=== PATIENT | male | born 1960 | race Caucasian/White ===

== ENCOUNTER 2016-10-14 12:13 | Emergency (ER) | payer OTHER ==
--- NOTE | ~2016-10-14 | CT71 ---
[facility] A Service of [facility] RADIOLOGY TEXT RESULTS PATIENT: VITALIY CONCEPCION LOCATION: [facility] : [birth year] UNIT #: [id number] AGE: [address]: Uriel Lopez MD SEX: M ORDER DR: [id number] [place] [id number] [facility]. [place], [place] [address] [id number] MR#: [id number] Acc #: [id number] NAME: VITALIY CONCEPCION : 1960 SEX: M STUDY DATE/TIME: 10/14/2016 12:53 UNIT: [facility] ROOM: STUDY DESCRIPTION: CT Head Wo Contrast Attending Physician: Uriel Lopez M.D. Ordering Physician: Uriel Lopez M.D. Primary Care Physician: William Doyle M.D. MEDICAL IMAGING REPORT This report is preliminary unless electronic signature is present EXAM CT of the head without contrast. INDICATION Neck pain for 2 weeks. Patient reports weakness in the right hand starting today. TECHNIQUE Axial CT images were obtained from the vertex of the skull through the skull base. No intravenous contrast was administered. This CT exam was performed with one or more of the following radiation dose reduction techniques: automatic exposure control, adjustment of mA and/or kV according to patient size, and iterative reconstruction. FINDINGS No acute intracranial hemorrhage is identified. Patient does have some cerebral atrophy which may be mildly advanced for the age of 56. I do think this has progressed slightly when compared to the exam from October 2011. There is no midline shift or mass effect and no focal areas of decreased attenuation are seen. Visualized paranasal sinuses and mastoid air cells appear clear. There is atherosclerotic involvement of the cavernous carotid arteries. There are no focal soft tissue abnormalities. IMPRESSION No acute intracranial process identified. Specifically, there is no evidence of acute hemorrhage, mass lesion, or acute infarct. [facility] A Service of [facility] RADIOLOGY TEXT RESULTS PATIENT: VITALIY CONCEPCION LOCATION: [facility] : [birth year] UNIT #: [id number] AGE: [address]: Uriel Lopez MD SEX: M ORDER DR: Dictated by... Lindsey Light M.D. THIS IS AN ELECTRONICALLY VERIFIED REPORT Lindsey Light M.D. at 10/14/2016 4:39 PM AFF/tmw TD: 10/14/2016 16:26 JOB #: [id number] MEDICAL IMAGING REPORT COPY
[~2016-10-14 12:13] MED LIST: ASPIRIN EC81 M1 PO; AZOR 10/20 MG T1 TAB PO; CLOPIDOGREL75 MG PO; LIPITOR20 MG PO; METOPROLOL TAR25 MG PO; PREVACID PO
== END 2016-10-14 13:49 | disposition home or self-care (01) ==
LOC: CED 12:13
DX: M54.12 Radiculopathy, cervical region (principal); F17.200 Nicotine dependence, unspecified, uncomplicated
CPT/HCPCS: 70450; 99284

== ENCOUNTER → 2016-11-04 | Outpatient (CLI) | payer OTHER ==
--- NOTE | ~2016-11-04 | MR32 ---
[facility] A Service of [facility] RADIOLOGY TEXT RESULTS PATIENT: VITALIY CONCEPCION LOCATION: [facility] : 62 UNIT #: [id number] AGE: [address]: William Doyle MD SEX: M ORDER DR: [id number] [place] [id number] O MR#: [id number] Acc #: [id number] NAME: VITALIY CONCEPCION : 1960 SEX: M STUDY DATE/TIME: 11/04/2016 13:11 UNIT: [facility] ROOM: STUDY DESCRIPTION: MR Cervical Wo Contrast Attending Physician: William Doyle M.D. Referring Physician: William Doyle M.D. Ordering Physician: William Doyle M.D. Primary Care Physician: William Doyle M.D. MRI CENTER REPORT This report is preliminary unless electronic signature is present. EXAM Cervical spine MR without contrast 11/04/2016 PROCEDURE Routine unenhanced cervical spine MRI COMPARISON None. CLINICAL HISTORY Increasing neck pain radiating to right shoulder and arm for about 1 month. PROCEDURE Routine unenhanced cervical spine MRI FINDINGS There is a midcervical loss and slight reversal of lordosis. There are mild degenerative marrow signal changes but there is no acute marrow edema or infiltration or replacement. The posterior fossa and its contents are normal. Cord signal is normal. The paraspinous soft tissues are unremarkable. At C2-3 the canal and right foramen are normal and there is minimal left foraminal narrowing. At C3-4 there is mild canal narrowing, and mild left and moderate right foraminal narrowing. At 4-5, there is mild canal stenosis and possible slight cord compression. There is no abnormal cord signal and there is moderate or moderate to severe left and moderate to severe or severe right foraminal stenosis. At 5-6, there is mild to moderate cord compression with a slight left side [facility] A Service of [facility] RADIOLOGY TEXT RESULTS PATIENT: VITALIY CONCEPCION LOCATION: [facility] : 62 UNIT #: [id number] AGE: [address]: William Doyle MD SEX: M ORDER DR: predominance due to disc and osteophyte complex but there is no abnormal cord signal. There is moderate right and moderate or moderate to severe left foraminal stenosis. At 6-7, there is moderate cord compression due to disc and osteophyte complex. There is no definite abnormal cord signal but there is moderate to severe or severe left and severe right foraminal stenosis. At 7-1, there is mild canal stenosis without cord compression and mild bilateral foraminal stenosis. IMPRESSION Multilevel degenerative change. There is even cord compression at 4-5, 5-6, and 6-7 but no abnormal cord signal at any level. Please see above for level by level details. Dictated by... Avery Chandler M.D. THIS IS AN ELECTRONICALLY VERIFIED REPORT Avery Chandler M.D. at 11/08/2016 9:26 AM ALEX/dipti TD: 11/06/2016 05:35 JOB #: [id number] MRI CENTER REPORT Page 1 of 1
== END | disposition home or self-care (01) ==
LOC: SMRI 12:25
DX: M54.12 Radiculopathy, cervical region (principal); M47.22 Other spondylosis with radiculopathy, cervical region
CPT/HCPCS: 72141